=== PATIENT | male | born 2000 | race Hispanic/Latino ===

== ENCOUNTER 2021-07-27 22:47 | Emergency (ER) | payer OTHER, SELFPAY ==
--- NOTE | ~2021-07-27 | XR_ITS ---
EXAMINATION: XR chest 1V portable DATE: 07/28/2021 00:49 INDICATION: Shortness of breath and cough. TECHNIQUE: A single frontal view of the chest was obtained on 2 radiographs. COMPARISON: None. FINDINGS: The chest demonstrates clear lungs without pneumonia, pleural effusion, or pneumothorax. Th e heart size is normal. IMPRESSION: 1. No acute cardiopulmonary disease. Reviewed, dictated and finalized at location A.
[2021-07-27 22:53] VITALS: BP 121/79; PULSE 75; RESP 16; TEMP 36.5; O2SAT 100
[2021-07-28 01:00] VITALS: BP 118/81; PULSE 73; RESP 18; O2SAT 99
[2021-07-28 01:13] LABS: Basophils Absolute Auto 0.1 K/mm3 (0.0-0.1); Basophils Percent Auto 0.5 % (0.2-1.2); Eosinophils Absolute Auto 0.3 K/mm3 (0-0.3); Eosinophils Percent Auto 2.9 % (0-4.4); Hematocrit 41.8 % (42.0-52.0); Hemoglobin 15.1 g/dL (14.0-18.0); Immature Granulocyte Absolute 0.03 K/mm3 (0.00-0.031); Immature Granulocyte Percent A 0.3 % (0-0.5); Lymphocytes Percent Auto 24.9 % (18.3-44.2); Mean Corpuscular HGB Conc 36.1 g/dl (32-36); Mean Corpuscular Hemoglobin 29.8 pg (26-34); Mean Corpuscular Volume 82.4 fl (80-100); Mean Platelet Volume 10.6 fl (7.4-10.4); Monocytes Absolute Auto 0.9 K/mm3 (0.1-0.6); Monocytes Percent Auto 9.5 % (2.6-8.5); Neutrophils Absolute Auto 5.7 K/mm3 (1.3-6.7); Neutrophils Percent Auto 61.9 % (45.5-73.1); Platelet Count Result 256 k/mm3 (150-375); Red Blood Count 5.07 M/mm3 (4.6-6.20); Red Cell Distribution Width 11.9 % (11.5-14.5); White Blood Count 9.3 K/mm3 (4.5-10.0)
[2021-07-28 01:14] VITALS: O2SAT 98
--- NOTE | 2021-07-28 01:25 | ED.SOB ---
HPI - SOB/Dyspnea General Chief Complaint: Shortness of Breath/Dyspnea Stated Complaint: sob Time Seen by Provider: 07/28/21 00:27 Source: patient Mode of arrival: ambulatory Limitations: no limitations History of Present Illness HPI Narrative: This is a 20 year old male that presents to the ER for cold symptoms present over the last week. Reports fever, cough, sore throat, and congestion. Reports he started to feel like he couldn't catch his breath which prompted him to be seen. He was concerned he may have pneumonie. Denies chest pain or lower extremity edema. Related Data Home Medications Medication Instructions Recorded Confirmed No Home Medications 07/28/21 07/28/21 Allergies Allergy/AdvReac Type Severity Reaction Status Date / Time shellfish derived Allergy Itching Verified 07/28/21 00:39 Review of Systems Review of Systems: CONSTITUTIONAL: Denies fever ENT: Reports congestion, sore throat CARDIOVASCULAR: Denies chest pain, or edema. RESPIRATORY: Reports cough and dyspnea. All systems reviewed & are unremarkable except as noted in HPI and below PMFSH Past Medical History Medical History (Updated 07/28/21 @ 01:58 by Krissy Jacobs PA-C) No active medical problems Social History Social History (Updated 07/28/21 @ 01:35 by Krissy Jacobs PA-C) Smoking status: Current every day smoker Exam Narrative: GENERAL: Well-appearing, well-nourished, and in no acute distress. HEAD: Normocephalic, atraumatic. EYES: EOMI. ENT: Nares clear, no rhinorrhea or epistaxis. Mucous membranes moist. Oropharynx with mild redness, without tonsillar hypertrophy exudate or other lesions. Bilateral TMs pearly casas non-bulging NECK: Supple. No adenopathy or masses. CHEST: Clear to auscultation. No respiratory distress. No wheezes rales or rhonchi HEART: Regular rate and rhythm. No murmur heard. Normal peripheral pulses. EXTREMITIES: Normal range of motion. No edema. SKIN: Warm, dry, no rash. NEURO: No focal deficits. Alert and oriented x3. PSYCH: Normal mood and affect Course Vital Signs Vital signs: Vital Signs Temperature 97.7 F 07/27/21 22:53 Pulse Rate 75 07/27/21 22:53 Respiratory Rate 16 07/27/21 22:53 Blood Pressure 121/79 07/27/21 22:53 Pulse Oximetry 100 07/27/21 22:53 Temperature 97.7 F 07/27/21 22:53 Pulse Rate 73 07/28/21 01:00 Respiratory Rate 18 07/28/21 01:00 Blood Pressure 118/81 07/28/21 01:00 Pulse Oximetry 98 07/28/21 01:14 MDM - SOB/Dyspnea MDM Narrative Medical decision making narrative: Patient presents to the emergency department for cold symptoms present over the last week. He is afebrile and nontoxic-appearing. Oxygen saturation has remained normal on room air. Lungs are clear on exam. CBC and metabolic panel without concerning findings. Covid, influenza, strep, and mono screens are negative. Chest x-ray without acute cardiopulmonary abnormality. Patient was updated on case findings. He was instructed on continued care of viral infection. He is to follow-up with primary care doctor. He was given warnings to return to the ER Lab Data Attestation: I reviewed the patient's lab results. Result diagrams: 07/28/21 01:04 07/28/21 01:04 Labs: Lab Results 07/28/21 07/28/21 07/28/21 Range/Units 01:04 01:04 01:04 WBC 9.3 (4.5-10.0) K/mm3 RBC 5.07 (4.6-6.20) M/mm3 Hgb 15.1 (14.0-18.0) g/dL Hct 41.8 L (42.0-52.0) % MCV 82.4 (80-100) fl MCH 29.8 (26-34) pg MCHC 36.1 H (32-36) g/dl RDW 11.9 (11.5-14.5) % Plt Count 256 (150-375) k/mm3 MPV 10.6 H (7.4-10.4) fl Immature Gran % (Auto) 0.3 (0-0.5) % Neut % (Auto) 61.9 (45.5-73.1) % Lymph % (Auto) 24.9 (18.3-44.2) % [place] % (Auto) 9.5 H (2.6-8.5) % Eos % (Auto) 2.9 (0-4.4) % Baso % (Auto) 0.5 (0.2-1.2) % Lymph # (Auto) 2.30 (0.9-3.2) K/mm3 [place] # (Auto) 0.9 H (0.1-0.6) K/mm3 Eos #
[2021-07-28 01:26] LABS: Anion Gap 6 mmol/L (8-16); Blood Urea Nitrogen 12 mg/dL (9-20); Calcium 9.1 mg/dL (8.4-10.2); Carbon Dioxide 23 mmol/L (22-30); Chloride 107 mmol/L (98-107); Estimated CRCL calculation 113 ml/min; Estimated Glomerular Filt Rate > 60; Glucose 97 mg/dL (65-110); Potassium 3.6 mmol/L (3.4-5.0); Sodium 136 mmol/L (137-145)
[2021-07-28 01:43] LABS: Monoscreen Negative (Negative); Negative Monotest Control Negative (Negative); Positive Monotest Control Positive (Positive)
[2021-07-28 01:48] LABS: Influenza A QL RT-PCR Negative (Negative); Influenza B QL RT-PCR Negative (Negative); SARS-CoV-2 RNA PCR Negative
[2021-07-28 02:16] VITALS: BP 108/84; PULSE 64; RESP 17; O2SAT 99
== END 2021-07-28 02:17 | disposition home or self-care (01) ==
PROVIDERS: Physician Assistant; Emergency Provider Emergency Medicine; PCP Emergency Medicine
DX: J06.9 Acute upper respiratory infection, unspecified (principal); Z20.822 Contact with and (suspected) exposure to COVID-19; F17.200 Nicotine dependence, unspecified, uncomplicated
CPT/HCPCS: 36415; 71045; 80048; 85025; 86308; 87081; 87502; 87880; 99283; C9803; U0003; U0005

== ENCOUNTER 2021-08-21 18:54 | Emergency (ER) | payer OTHER, SELFPAY ==
[2021-08-21] VITALS (8 sets, daily range): BP systolic 112–119; BP diastolic 73–85; PULSE 112; RESP 20; TEMP 37.3; O2SAT 97–100
--- NOTE | 2021-08-21 19:27 | ED.NAVMDI ---
HPI - Nausea/Vomiting/Diarrhea General Chief complaint: Nausea/Vomiting/Diarrhea Stated complaint: n/v Time Seen by Provider: 08/21/21 19:22 Source: patient History of Present Illness HPI Narrative: Patient presents with nausea vomiting diarrhea which started yesterday. Patient reports he tried some Tylenol at home as well as some antinausea medicine her symptoms appear to be getting worse so he came to the ER for evaluation. Reports he has not been able to keep anything down past 24 hours. Reports scant blood in his emesis denies any melena or blood in his stool. Denies any known sick contacts denies recent travel outside the area denies any recent antibiotic. Also reports diffuse abdominal pain described as a cramping sensation no clear aggravating relieving factors, no radiation Related Data Allergies Allergy/AdvReac Type Severity Reaction Status Date / Time shellfish derived Allergy Itching Verified 07/28/21 00:39 Review of Systems Review of Systems: CONSTITUTIONAL: Subjective chills EYES: Denies visual changes, redness, or discharge. ENT: Denies rhinorrhea, congestion, sore throat, or otalgia. CARDIOVASCULAR: Denies chest pain, palpitations, or edema. RESPIRATORY: Denies cough or dyspnea. GASTROINTESTINAL: Reports abdominal pain nausea and vomiting GENITOURINARY: Denies dysuria or hematuria. SKIN: Denies rash or itching. MUSCULOSKELETAL: Denies back pain, joint pain, or myalgia. NEUROLOGIC: Denies headache, numbness, dizziness, or weakness. PSYCHIATRIC: Denies anxiety or depression. All systems reviewed & are unremarkable except as noted in HPI and below PMFSH Past Medical History Medical History No active medical problems Social History Social History Smoking status: Current every day smoker Exam Narrative: GENERAL: Well-appearing, well-nourished, and in no acute distress. HEAD: Normocephalic, atraumatic. EYES: PERRLA and EOMI. ENT: Nares clear, no rhinorrhea or epistaxis. Mucous membranes moist. NECK: Supple. No masses. No JVD CHEST: Clear to auscultation. No respiratory distress. No wheezes rales or rhonchi HEART: Regular rate and rhythm. No murmur heard. Normal peripheral pulses. ABDOMEN: Minimal diffuse pain with deep palpation no rebound or guarding soft, nondistended. EXTREMITIES: Normal range of motion. No edema. SKIN: Warm, dry, no rash. NEURO: No focal deficits. Alert and oriented x3. PSYCH: Normal mood and affect. Course Reevaluation(s) Reevaluation #1: Patient reports feeling much improved after supportive therapies. He feels like he can manage his symptoms at home. Patient is comfortable outpatient plan. Date: 08/21/21 Time: 20:38 Vital Signs Vital signs: Vital Signs Temperature 37.3 C 08/21/21 19:02 Pulse Rate 112 H 08/21/21 19:02 Respiratory Rate 20 08/21/21 19:02 Blood Pressure 114/82 08/21/21 19:02 Pulse Oximetry 99 08/21/21 19:02 Temperature 37.3 C 08/21/21 19:02 Pulse Rate 112 H 08/21/21 19:02 Respiratory Rate 20 08/21/21 19:02 Blood Pressure 119/73 08/21/21 20:31 Pulse Oximetry 97 08/21/21 20:31 MDM - Nausea/Vomiting/Diarrhea MDM Narrative Medical decision making narrative: H&P as above, vss, pt looks clinically well, exam with nonacute abdomen, labs clinically unremarkable, additional labs/img considered. symptomatic relief available as needed, patient treated with fluids and Zofran on reevaluation pt continues to looks clinically well reports large improvement in symptoms. Suspect viral gastroenteritis, dns severe sepsis, severe dehydration, perforation, diverticulitis, appendicitis, bowel obstruction. plan to tx/monitor as op w/ pcm f/u findings/plan discussed with pt, pt agree/comfortable with plan, return precautions given Lab Data Result diagrams: 08/21/21 19:37 08/21/21 19:37 Labs: Lab Results
[2021-08-21] MEDS: ONDANSETRON INJ 4 MG/2 ML VIAL IV PUSH (19:43)
[2021-08-21] MEDS: SODIUM CHLORIDE 0.9% IV 1,000 ML 999 ML IV CONT (19:43)
[2021-08-21 19:47] LABS: Basophils Percent Auto 0.5 % (0.2-1.2); Eosinophils Absolute Auto 0.1 K/mm3 (0-0.3); Eosinophils Percent Auto 1.1 % (0-4.4); Hematocrit 46.6 % (42.0-52.0); Hemoglobin 16.6 g/dL (14.0-18.0); Immature Granulocyte Absolute 0.02 K/mm3 (0.00-0.031); Immature Granulocyte Percent A 0.3 % (0-0.5); Lymphocytes Absolute Auto 0.63 K/mm3 (0.9-3.2); Lymphocytes Percent Auto 8.5 % (18.3-44.2); Mean Corpuscular HGB Conc 35.6 g/dl (32-36); Mean Corpuscular Hemoglobin 29.2 pg (26-34); Mean Corpuscular Volume 81.9 fl (80-100); Mean Platelet Volume 10.8 fl (7.4-10.4); Monocytes Absolute Auto 0.7 K/mm3 (0.1-0.6); Monocytes Percent Auto 8.9 % (2.6-8.5); Neutrophils Percent Auto 80.7 % (45.5-73.1); Platelet Count Result 191 k/mm3 (150-375); Red Blood Count 5.69 M/mm3 (4.6-6.20); Red Cell Distribution Width 11.6 % (11.5-14.5); White Blood Count 7.4 K/mm3 (4.5-10.0)
[2021-08-21 19:53] LABS: Alanine Aminotransferase 31 U/L (4-50); Alkaline Phosphatase 64 U/L (38-126); Anion Gap 11 mmol/L (8-16); Aspartate Amino Transferase 40 U/L (17-59); Bilirubin,Total 1.9 mg/dL (0.2-1.3); Blood Urea Nitrogen 17 mg/dL (9-20); Calcium 9.3 mg/dL (8.4-10.2); Carbon Dioxide 21 mmol/L (22-30); Chloride 104 mmol/L (98-107); Estimated CRCL calculation 77 ml/min; Estimated Glomerular Filt Rate > 60; Glucose 114 mg/dL (65-110); Lipase 40 U/L (23-300); Potassium 3.9 mmol/L (3.4-5.0); Sodium 136 mmol/L (137-145)
[2021-08-21 19:57] LABS: Add Urine Microscopic? YES; Amorphous Sediment Urine Few; Appearance Urine Cloudy (Clear); Bacteria Urine Trace /hpf; Bilirubin Urine Negative (Negative); Blood Urine Negative (Negative); Color Urine Amber (Yellow); Glucose Urine UA Negative (Negative); Ketones Urine 1+ mg/dL (Negative); Leukocyte Esterase Ur Negative LEU/UL (Negative); Mucus Urine Heavy /lpf; Nitrate Urine Negative (Negative); Protein Urine 1+ mg/dL (Negative); Urobilinogen Urine Negative mg/dL (<2.0)
[2021-08-21 20:25] LABS: Specific Grav Ur 1.032 (1.001-1.035)
== END 2021-08-21 20:54 | disposition home or self-care (01) ==
PROVIDERS: Emergency Provider Emergency Medicine; PCP Emergency Medicine
DX: R11.2 Nausea with vomiting, unspecified (principal); R19.7 Diarrhea, unspecified; R10.84 Generalized abdominal pain; F17.200 Nicotine dependence, unspecified, uncomplicated
CPT/HCPCS: 36415; 80053; 81001; 83690; 85025; 87086; 96361; 96374; 99284; J2405; J7030